=== PATIENT | female | born 1985 | race African-American/Black ===

== ENCOUNTER 2016-09-03 06:09 | Emergency (ER) | payer MEDICAID ==
[~2016-09-03] VITALS: Ht 152.4 cm; Wt 100.0 kg
[2016-09-03 08:30] LABS: BASOPHILS % 0.6 % (0.0-2.0); HEMATOCRIT. 35.9 % (36.0-48.0); HEMOGLOBIN. 11.9 g/dL (12.0-16.0); LYMPHOCYTES % 28.8 % (20.0-50.0); MEAN CORPUSCULAR VOLUME 81.5 fL (81.0-99.0); MEAN PLATELET VOLUME 7.4 fl (7.4-10.4); NEUTROPHILS % 61.6 % (40.0-76.0); PLATELET 341 x1000/uL (130-400); RED CELL DISTRIBUTION WIDTH 14.5 % (11.6-14.6)
[2016-09-03 08:39] LABS: CARBON DIOXIDE 27 mEq/L (21-32); CHLORIDE 107 mEq/L (98-107)
[2016-09-03 08:41] LABS: HCG SCREEN NEGATIVE
[2016-09-03 09:50] VITALS: BP 112/60
== END 2016-09-03 09:54 | disposition home or self-care (01) ==
LOC: ER 06:09
DX: R60.0 Localized edema (principal)
CPT/HCPCS: 36415; 80053; 84703; 85025; 99284; Z7610